=== PATIENT | female | born 1970 | race Hispanic/Latino ===

== ENCOUNTER 2022-12-29 12:25 | Outpatient (CLI) | payer BC | END 2022-12-29 12:26 | disposition home or self-care (01) | LOC: CSHMAMMO 12:25 | PROVIDERS: ATTEND Family Medicine | DX: Z12.31 Encounter for screening mammogram for malignant neoplasm of breast (principal); N63.20 Unspecified lump in the left breast, unspecified quadrant | CPT/HCPCS: 77063; 77067 ==

== ENCOUNTER 2023-01-02 08:07 | Outpatient (CLI) | payer BC | END 2023-01-02 08:08 | disposition home or self-care (01) | LOC: CSHULT 08:07 | PROVIDERS: ATTEND Family Medicine | DX: N60.12 Diffuse cystic mastopathy of left breast (principal) ==